=== PATIENT | male | born 1975 | race African-American/Black ===

== ENCOUNTER → 2016-08-31 | Outpatient (CLI) | payer OTHER, BC ==
[~2016-08-31] MED LIST: ARMOUR THYROID60 MG PO; ASPIRIN 81M81 MG/TA2 PO; CIPRO 500MG TA500 MG PO; DESYREL 50MG50 MG PO; DOXYCYCLINE 10100 MG PO; EFFEXOR XR75 MG/CAP PO; FLOMAX 0.40.4 MG/CAP PO; IMDUR 30MG30 MG/TAB PO; LIPITOR 40MG TA40 MG PO; LOPRESSOR 225 MG/TAB PO; LORTAB 5/500 501 TAB PO; MINIPRESS 5M5 MG/CAP PO; MOBIC15 MG PO; MOTRIN 800800 MG/TAB PO; NO HOME MEDICATIONS; NORCO 325 MG-51 TAB PO; NORVASC 10MG10 MG PO; NORVASC 5MG5 MG/TAB PO; PERCOCET 325 MG1 TA2 PO; PROTONIX 40MG T40 MG PO; SLEEP AID; VENLAFAXINE ER 75MG; VITAMIN D31000 IU PO; ZOFRAN ODT4 MG PO
== END ==
LOC: BHSO 15:48
DX: F33.42 Major depressive disorder, recurrent, in full remission (principal)

== ENCOUNTER → 2017-02-20 | Outpatient (CLI) | payer BC, OTHER | LOC: COL.RAD 07:50 | DX: S93.431A Sprain of tibiofibular ligament of right ankle, initial encounter (principal); S93.411A Sprain of calcaneofibular ligament of right ankle, initial encounter; Q66.89 Other specified congenital deformities of feet ==

== ENCOUNTER → 2018-01-15 | Outpatient (CLI) | payer BC | LOC: COL.RAD 10:30 | DX: M65.871 Other synovitis and tenosynovitis, right ankle and foot (principal) ==

== ENCOUNTER 2018-04-20 22:24 | Emergency (ER) | payer BC ==
[~2018-04-20] VITALS: Ht 167.6 cm; Wt 97.3 kg
[2018-04-20 22:30] VITALS: BP 146/89; TEMP 98.4
[2018-04-21 00:42] VITALS: PULSE 72
== END 2018-04-21 00:42 | disposition home or self-care (01) ==
LOC: COL.ER 22:24
DX: Z47.89 Encounter for other orthopedic aftercare (principal); I10 Essential (primary) hypertension; E78.5 Hyperlipidemia, unspecified; K21.9 Gastro-esophageal reflux disease without esophagitis; Z98.890 Other specified postprocedural states
CPT/HCPCS: Q4045

== ENCOUNTER → 2019-02-27 | Outpatient (CLI) | payer BC | LOC: COL.PUL 09:41 | DX: R07.89 Other chest pain (principal) ==

== ENCOUNTER → 2019-03-28 | Outpatient (CLI) | payer BC | LOC: COL.RAD 03-25 10:30 | DX: N20.0 Calculus of kidney (principal) ==